=== PATIENT | female | born 1965 | race African-American/Black ===

== ENCOUNTER 2021-01-03 20:49 | Emergency (ER) | payer OTHER ==
[2021-01-04 00:18] LABS: #Eosinphils 0.2 10x3/uL (0.0-0.5); #Monocytes 0.6 10x3/uL (0.0-1.1); #Neutrophils 3.3 10x3/uL (1.5-8.4); %Basophils 0.6 % (0.0-2.0); %Eosinophils 3.2 % (0.0-6.0); %Lymphocytes 39.7 % (18.0-47.0); %Monocytes 8.4 % (0.0-10.0); %Neutrophils 47.8 % (40.0-75.0); Hemoglobin 14.2 g/dL (12.0-15.5); Mean Corpuscular HGB CONC 34.3 g/dL (32.0-36.0); Mean Corpuscular Hemoglobin 31.8 pg (27.0-33.0); Mean Corpuscular Volume 92.6 fl (81.6-98.3); Mean Platelet Volume 11.8 fl (7.4-10.4); Platelet Count 191 10x3/uL (150-450); RBC Distribution Width 12.4 % (11.5-14.5); Red Blood Cell (RBC) Count 4.47 10x6/uL (3.90-5.03); White Blood Cell (WBC) Count 6.9 10x3/uL (3.5-10.5)
[2021-01-04 00:27] LABS: ALT (SGPT) 44 U/L (8-55); AST (SGOT) 41 U/L (5-34); Albumin 3.9 g/dL (3.5-5.0); Alkaline Phosphatase 98 U/L (40-110); Anion Gap 14 mmol/L (10-20); BUN (Urea Nitrogen) 17 mg/dL (9.8-20.1); Bilirubin, Total 0.7 mg/dL (0.2-1.2); Calc. Creatinine Clearance 0 mL/min (70-130); Carbon Dioxide 22 mmol/L (22-29); Chloride 107 mmol/L (98-107); Globulin 2.9 g/dL (2.4-3.5); Glucose 195 mg/dL (70-105); Potassium 3.5 mmol/L (3.5-5.1); Protein, Total 6.8 g/dL (6.0-8.3); Sodium 139 mmol/L (136-145)
[2021-01-04 00:29] LABS: Actual Bicarbonate (HCO3v) 24 mEq/L (22-28); Base Excess -1.8 mEq/L (-2.0 to +3.0); Calcium, Ionized (venous) 1.15 mmol/L (1.16-1.32); Chloride (VBG) 105 mmol/L (98-106); Critical Notified Whom: MD; Hemoglobin (Hb) 15.2 g/dL (11.7-16.0); Potassium (VBG) 3.54 mmol/L (3.70-5.30); Puncture Site Other Site; Sodium 139.3 mmol/L (133-146); pH (venous) 7.36 (7.32-7.43)
[2021-01-04 00:37] LABS: Bilirubin Neg (Negative); Blood, Urine 25 (Negative); Clarity Slightly Cloudy (Clear); Glucose, Urine (Dipstick) 250 mg/dL (Negative); Ketone, Urine 50 mg/dL (Negative); Leukocyte 500 (Negative); Nitrite Negative (Negative); Protein, Urine (Dipstick) 15 mg/dl (Neg-Trace); Specific Gravity, Urine 1.025 (1.002-1.036); Urobilinogen Normal mg/dL (Less than 2)
[2021-01-04 01:00] LABS: Bacteria/HPF Rare-Few HPF (None Seen)
== END 2021-01-04 01:45 | disposition home or self-care (01) ==
LOC: CSHERS 20:49
DX: E11.65 Type 2 diabetes mellitus with hyperglycemia (principal); E78.5 Hyperlipidemia, unspecified; E78.00 Pure hypercholesterolemia, unspecified; J45.909 Unspecified asthma, uncomplicated; Z79.84 Long term (current) use of oral hypoglycemic drugs
CPT/HCPCS: 36416; 80053; 81003; 81015; 82010; 82805; 85025; 99284

== ENCOUNTER 2021-01-20 02:37 | Emergency (ER) | payer OTHER ==
[2021-01-20] MEDS ORDERED: Dexamethasone 10 MG/ML VIAL ONE (03:09)
== END 2021-01-20 03:48 | disposition home or self-care (01) ==
LOC: CSHERS 02:37
DX: J45.901 Unspecified asthma with (acute) exacerbation (principal); E11.9 Type 2 diabetes mellitus without complications; E78.00 Pure hypercholesterolemia, unspecified; E78.5 Hyperlipidemia, unspecified
CPT/HCPCS: 94640; 94760; J1100; J7620

== ENCOUNTER 2021-05-22 06:49 | Emergency (ER) | payer OTHER ==
[2021-05-22] MEDS ORDERED: Dexamethasone 10 MG/ML VIAL ONE (07:39)
[2021-05-22] MEDS ORDERED: Ventolin HFA Inhaler 60 PUFF INHALER ONE (07:40)
== END 2021-05-22 09:37 | disposition home or self-care (01) ==
LOC: CSHERS 06:49
DX: J45.901 Unspecified asthma with (acute) exacerbation (principal); E11.9 Type 2 diabetes mellitus without complications; E78.5 Hyperlipidemia, unspecified; E78.00 Pure hypercholesterolemia, unspecified
CPT/HCPCS: 96372; J1100

== ENCOUNTER 2021-10-09 00:46 | Emergency (ER) | payer OTHER ==
[2021-10-09] MEDS ORDERED: Albuterol Sulfate 2.5 mg/3 ml Neb ONE ×2 (00:59→01:34)
[2021-10-09] MEDS ORDERED: Magnesium 2 GM/50 ML BAG (IN WATER) ONE (01:09)
[2021-10-09] MEDS ORDERED: Dexamethasone 10 MG/ML VIAL ONE (01:09)
[2021-10-09 01:31] LABS: #Basophils 0.1 10x3/uL (0.0-0.2); #Eosinphils 0.5 10x3/uL (0.0-0.5); #Monocytes 0.4 10x3/uL (0.0-1.1); #Neutrophils 2.8 10x3/uL (1.5-8.4); %Basophils 0.8 % (0.0-2.0); %Eosinophils 7.6 % (0.0-6.0); %Lymphocytes 40.7 % (18.0-47.0); %Monocytes 5.8 % (0.0-10.0); %Neutrophils 44.9 % (40.0-75.0); Hemoglobin 13.7 g/dL (12.0-15.5); Mean Corpuscular HGB CONC 34.3 g/dL (32.0-36.0); Mean Corpuscular Hemoglobin 31.1 pg (27.0-33.0); Mean Corpuscular Volume 90.7 fl (81.6-98.3); Mean Platelet Volume 10.4 fl (7.4-10.4); Platelet Count 223 10x3/uL (150-450); RBC Distribution Width 13.7 % (11.5-14.5); Red Blood Cell (RBC) Count 4.41 10x6/uL (3.90-5.03); White Blood Cell (WBC) Count 6.2 10x3/uL (3.5-10.5)
[2021-10-09 01:38] LABS: ALT (SGPT) 33 U/L (8-55); AST (SGOT) 26 U/L (5-34); Albumin 4.2 g/dL (3.5-5.0); Alkaline Phosphatase 104 U/L (40-110); Anion Gap 14 mmol/L (10-20); BUN (Urea Nitrogen) 14 mg/dL (9.8-20.1); Bilirubin, Total 0.5 mg/dL (0.2-1.2); CK (CPK) 461 U/L (29-168); Calc. Creatinine Clearance 0 mL/min (70-130); Carbon Dioxide 26 mmol/L (22-29); Chloride 104 mmol/L (98-107); Globulin 2.6 g/dL (2.4-3.5); Glucose 177 mg/dL (70-105); Potassium 3.6 mmol/L (3.5-5.1); Protein, Total 6.8 g/dL (6.0-8.3); Sodium 140 mmol/L (136-145)
== END 2021-10-09 02:19 | disposition home or self-care (01) ==
LOC: CSHERS 00:46
DX: J45.901 Unspecified asthma with (acute) exacerbation (principal); E11.9 Type 2 diabetes mellitus without complications; E78.5 Hyperlipidemia, unspecified; E78.00 Pure hypercholesterolemia, unspecified
CPT/HCPCS: 71045; 80053; 82550; 84484; 85025; 93005; 94640; 94760; 96365; 96375; J1100; J3475; J7611; J7620

== ENCOUNTER 2022-01-26 19:34 | Emergency (ER) | payer OTHER ==
[2022-01-26] MEDS ORDERED: Dexamethasone 10 MG/ML VIAL ONE (20:14)
== END 2022-01-26 22:18 | disposition home or self-care (01) ==
LOC: CSHERS 19:34
DX: J45.909 Unspecified asthma, uncomplicated (principal); E11.9 Type 2 diabetes mellitus without complications; E78.5 Hyperlipidemia, unspecified
CPT/HCPCS: 94644; 94760; 96374; J1100; J7620

== ENCOUNTER 2022-02-11 01:08 | Emergency (ER) | payer OTHER ==
[2022-02-11] MEDS ORDERED: predniSONE 20 MG TAB ONE (01:39)
== END 2022-02-11 02:29 | disposition home or self-care (01) ==
LOC: CSHERS 01:08
DX: J45.901 Unspecified asthma with (acute) exacerbation (principal); E11.9 Type 2 diabetes mellitus without complications; E78.5 Hyperlipidemia, unspecified; Z79.899 Other long term (current) drug therapy
CPT/HCPCS: 93005; J7512

== ENCOUNTER 2022-05-30 14:10 | Outpatient (CLI) | payer BC | END 2022-05-30 14:11 | disposition home or self-care (01) | LOC: CSHMAMMO 14:10 | PROVIDERS: ATTEND Student in an Organized Health Care Education/Training Program | DX: Z12.31 Encounter for screening mammogram for malignant neoplasm of breast (principal) | CPT/HCPCS: 77063; 77067 ==

== ENCOUNTER 2022-06-01 17:49 | Emergency (ER) | payer BC ==
[2022-06-01] MEDS ORDERED: Ipratropium/Albuterol 3 ML NEB ONE ×3 (18:30→20:08)
[2022-06-01] MEDS ORDERED: Dexamethasone 10 MG/ML VIAL ONE (19:08)
== END 2022-06-01 22:30 | disposition home or self-care (01) ==
LOC: CSHERS 17:49
DX: J45.901 Unspecified asthma with (acute) exacerbation (principal); E11.9 Type 2 diabetes mellitus without complications; E78.5 Hyperlipidemia, unspecified
CPT/HCPCS: 71045; J1100; J7611; J7620

== ENCOUNTER 2022-06-02 20:43 | Emergency (ER) | payer BC ==
[2022-06-02] MEDS ORDERED: Ipratropium/Albuterol 3 ML NEB ONE ×2 (21:35→21:36)
[2022-06-02] MEDS ORDERED: predniSONE 20 MG TAB ONE (21:41)
[2022-06-02] MEDS ORDERED: Benzonatate 100 MG CAP ONE (21:42)
== END 2022-06-02 23:13 | disposition home or self-care (01) ==
LOC: CSHERS 20:43
DX: J20.9 Acute bronchitis, unspecified (principal); J45.901 Unspecified asthma with (acute) exacerbation; E11.9 Type 2 diabetes mellitus without complications; E78.5 Hyperlipidemia, unspecified; Z79.899 Other long term (current) drug therapy; Z79.84 Long term (current) use of oral hypoglycemic drugs
CPT/HCPCS: 93005; 94644; 94760; J7512; J7620

== ENCOUNTER 2022-12-20 01:58 | Emergency (ER) | payer BC ==
[2022-12-20] MEDS ORDERED: Albuterol 2.5 MG/0.5 ML NEB ONE (02:08)
[2022-12-20] MEDS ORDERED: Ipratropium/Albuterol 3 ML NEB ONE (02:09)
[2022-12-20] MEDS ORDERED: predniSONE 20 MG TAB ONE (02:11)
== END 2022-12-20 02:55 | disposition home or self-care (01) ==
LOC: CSHERS 01:58
DX: J45.901 Unspecified asthma with (acute) exacerbation (principal); E11.9 Type 2 diabetes mellitus without complications; E78.5 Hyperlipidemia, unspecified; Z79.84 Long term (current) use of oral hypoglycemic drugs; Z79.899 Other long term (current) drug therapy
CPT/HCPCS: 94644; 94760; J7512; J7611; J7620

== ENCOUNTER 2022-12-30 17:59 | Emergency (ER) | payer BC ==
[2022-12-30] MEDS ORDERED: predniSONE 20 MG TAB ONE (18:37)
[2022-12-30] MEDS ORDERED: Ipratropium/Albuterol 3 ML NEB ONE (18:56)
== END 2022-12-30 20:51 | disposition home or self-care (01) ==
LOC: CSHERS 17:59
DX: J45.901 Unspecified asthma with (acute) exacerbation (principal)
CPT/HCPCS: 94640; 94760; J7512; J7620

== ENCOUNTER 2023-01-15 02:56 | Emergency (ER) | payer BC ==
[2023-01-15] MEDS ORDERED: Ipratropium/Albuterol 3 ML NEB ONE ×2 (03:02→03:21)
[2023-01-15] MEDS ORDERED: methylPREDNISolone Sod Succ/PF 125 MG/2 ML VIAL ONE (03:22)
[2023-01-15 03:23] LABS: Anion Gap 17 mmol/L (10-20); BUN (Urea Nitrogen) 14 mg/dL (9.8-20.1); Calc. Creatinine Clearance 0 mL/min (70-130); Calcium 9.3 mg/dL (7.8-10.44); Carbon Dioxide 21 mmol/L (22-29); Chloride 106 mmol/L (98-107); Estimated GFR 55; Glucose 250 mg/dL (70-105); Potassium 3.8 mmol/L (3.5-5.1); Sodium 140 mmol/L (136-145)
[2023-01-15 03:25] LABS: #Basophils 0.1 10x3/uL (0.0-0.2); #Eosinphils 0.4 10x3/uL (0.0-0.5); #Monocytes 0.5 10x3/uL (0.0-1.1); #Neutrophils 4.4 10x3/uL (1.5-8.4); %Basophils 0.7 % (0.0-2.0); %Eosinophils 4.9 % (0.0-6.0); %Lymphocytes 37.4 % (18.0-47.0); %Monocytes 5.4 % (0.0-10.0); %Neutrophils 51.5 % (40.0-75.0); Hematocrit 44.2 % (34.9-44.5); Hemoglobin 14.6 g/dL (12.0-15.5); Mean Corpuscular Hemoglobin 31.1 pg (27.0-33.0); Mean Corpuscular Volume 94.2 fl (81.6-98.3); Mean Platelet Volume 10.7 fl (7.4-10.4); Platelet Count 263 10x3/uL (150-450); Red Blood Cell (RBC) Count 4.69 10x6/uL (3.90-5.03); White Blood Cell (WBC) Count 8.5 10x3/uL (3.5-10.5)
[2023-01-15 04:19] LABS: SARS-CoV-2 NAA Rapid Test Not Detected (NotDetected)
== END 2023-01-15 05:20 | disposition home or self-care (01) ==
LOC: CSHERS 02:56
DX: J45.901 Unspecified asthma with (acute) exacerbation (principal); E11.9 Type 2 diabetes mellitus without complications; Z87.891 Personal history of nicotine dependence; Z79.51 Long term (current) use of inhaled steroids; Z79.84 Long term (current) use of oral hypoglycemic drugs
CPT/HCPCS: 71045; 80048; 85025; 93005; 94760; 96374; J2930; J7620

== ENCOUNTER 2023-04-16 22:58 | Inpatient (IN) | payer BC ==
[2023-04-16] MEDS ORDERED: Ipratropium Bromide 2.5 ml Neb ONE (23:42)
[2023-04-17] MEDS ORDERED: Dexamethasone 10 MG/ML VIAL ONE (00:58)
[2023-04-17] MEDS ORDERED: Ipratropium Bromide 2.5 ml Neb ONE (01:11)
[2023-04-17 03:24] LABS: #Basophils 0.1 10x3/uL (0.0-0.2); #Eosinphils 0.2 10x3/uL (0.0-0.5); #Monocytes 0.1 10x3/uL (0.0-1.1); #Neutrophils 5.6 10x3/uL (1.5-8.4); %Basophils 0.7 % (0.0-2.0); %Eosinophils 2.4 % (0.0-6.0); %Monocytes 1.6 % (0.0-10.0); Hematocrit 38.5 % (34.9-44.5); Hemoglobin 13.1 g/dL (12.0-15.5); Mean Corpuscular Hemoglobin 31.4 pg (27.0-33.0); Mean Corpuscular Volume 92.3 fl (81.6-98.3); Mean Platelet Volume 10.2 fl (7.4-10.4); Platelet Count 229 10x3/uL (150-450); RBC Distribution Width 13.5 % (11.5-14.5); Red Blood Cell (RBC) Count 4.17 10x6/uL (3.90-5.03); White Blood Cell (WBC) Count 6.7 10x3/uL (3.5-10.5)
[2023-04-17] MEDS ORDERED: Magnesium 2 GM/50 ML BAG (IN WATER) ONE (03:32)
[2023-04-17 03:35] LABS: ALT (SGPT) 25 U/L (8-55); AST (SGOT) 18 U/L (5-34); Alkaline Phosphatase 82 U/L (40-110); Anion Gap 15 mmol/L (10-20); BUN (Urea Nitrogen) 11 mg/dL (9.8-20.1); Bilirubin, Total 0.7 mg/dL (0.2-1.2); Calc. Creatinine Clearance 0 mL/min (70-130); Carbon Dioxide 22 mmol/L (22-29); Chloride 108 mmol/L (98-107); Estimated GFR 73; Globulin 2.9 g/dL (2.4-3.5); Glucose 231 mg/dL (70-105); Potassium 3.8 mmol/L (3.5-5.1); Protein, Total 6.9 g/dL (6.0-8.3); Sodium 141 mmol/L (136-145)
[2023-04-17] MEDS ORDERED: Senokot S 8.6-50 MG TAB PO PRN (03:43)
[2023-04-17] MEDS ORDERED: Glucagon 1 MG/ML KIT IM PRN (03:43)
[2023-04-17] MEDS ORDERED: Dextrose 50% Abboject 50 ML SYRINGE SLOW IVP PRN (03:43)
[2023-04-17] MEDS ORDERED: Calcium Carbonate 500 MG ChewTAB PO PRN (03:43)
[2023-04-17] MEDS ORDERED: Dextrose 5% in Water 1,000 ML IV PRN (03:43)
[2023-04-17] MEDS ORDERED: Zolpidem Tartrate 5 MG TAB PO PRN (03:43)
[2023-04-17] MEDS ORDERED: Ondansetron PF 4 MG/2 ML Vial IVP PRN (03:43)
[2023-04-17] MEDS ORDERED: Guaifenesin DM 100-10/5 ML UDCUP PO PRN (03:43)
[2023-04-17] MEDS ORDERED: Acetaminophen 325 MG TAB PO PRN (03:43)
[2023-04-17] MEDS ORDERED: Ipratropium/Albuterol 3 ML NEB NEB PRN (03:45)
[2023-04-17 04:09] LABS: SARS-CoV-2 NAA Rapid Test Not Detected (NotDetected)
[2023-04-17 04:09] LABS: Actual Bicarbonate (HCO3v) 24.1 mEq/L (22-28); Analyzer IN Cardio CS ER; Base Excess -1.7 mEq/L (-2 - +2); Calcium, Ionized (venous) 1.12 mmol/L (1.16-1.32); Chloride (VBG) 107 mmol/L (98-106); Critical Notified By: CP.PH; Hematocrit-VBG 41 % (36.0-47.0); Hemoglobin (Hb) 14.1 g/dL (11.7-16.0); Potassium (VBG) 3.83 mmol/L (3.70-5.30); Puncture Site Other Site; RapidComm Collect By LAB.YY; Sodium 141 mmol/L (133-146); pH (venous) 7.348 (7.32-7.43)
[2023-04-17] MEDS ORDERED: Ipratropium/Albuterol 3 ML NEB ONE (08:25)
[2023-04-17 09:19] VITALS: BMI 27.9
[2023-04-17] MEDS ORDERED: Oxymetazoline HCl 0.05% ( 15 ML ) NASAL SCH (10:00)
[2023-04-17] MEDS ORDERED: Azithromycin 250 MG TAB PO SCH (10:00)
[2023-04-17] MEDS ORDERED: Famotidine 20 MG TAB PO SCH (10:00)
[2023-04-17] MEDS ORDERED: glipiZIDE XL 10 mg ER.TAB PO SCH (10:00)
[2023-04-17] MEDS ORDERED: Mometasone/Formoterol 200/5 60 PUFF INH SCH (10:00)
[2023-04-17] MEDS: HumaLOG 300 UNITS/3 ML VIAL SC PRN ×3 (10:08→21:32)
[2023-04-17] MEDS ORDERED: FLU VACC QS2023-24(6MOS UP)/PF 60 MCG/0.5 ML SYRINGE IM ONE (11:15)
[2023-04-17] MEDS ORDERED: methylPREDNISolone Sod Succ/PF 125 MG/2 ML VIAL IVP SCH (12:00)
[2023-04-17] MEDS: Ipratropium/Albuterol 3 ML NEB NEB SCH ×2 (13:08→19:00)
[2023-04-17] MEDS: Famotidine 20 MG TAB PO SCH (20:40)
[2023-04-17] MEDS: Oxymetazoline HCl 0.05% ( 15 ML ) NASAL SCH (20:41)
[2023-04-17] MEDS ORDERED: Atorvastatin Calcium 20 MG TAB PO SCH (21:00)
[2023-04-17] MEDS ORDERED: Montelukast Sodium 10 mg Tablet PO SCH (21:00)
[2023-04-17] MEDS: Mometasone/Formoterol 200/5 60 PUFF INH SCH (21:50)
[2023-04-18] MEDS: Ipratropium/Albuterol 3 ML NEB NEB SCH ×2 (01:00→07:35)
[2023-04-18 04:58] LABS: #Eosinphils 0.1 10x3/uL (0.0-0.5); #Monocytes 0.7 10x3/uL (0.0-1.1); %Basophils 0.3 % (0.0-2.0); %Eosinophils 0.7 % (0.0-6.0); %Lymphocytes 17.4 % (18.0-47.0); %Monocytes 5.6 % (0.0-10.0); %Neutrophils 75.7 % (40.0-75.0); Hematocrit 39.2 % (34.9-44.5); Hemoglobin 13.4 g/dL (12.0-15.5); Mean Corpuscular HGB CONC 34.2 g/dL (32.0-36.0); Mean Corpuscular Hemoglobin 31.5 pg (27.0-33.0); Mean Corpuscular Volume 92.2 fl (81.6-98.3); Mean Platelet Volume 10.7 fl (7.4-10.4); Platelet Count 248 10x3/uL (150-450); RBC Distribution Width 13.5 % (11.5-14.5); Red Blood Cell (RBC) Count 4.25 10x6/uL (3.90-5.03); White Blood Cell (WBC) Count 11.8 10x3/uL (3.5-10.5)
[2023-04-18 05:06] LABS: Anion Gap 14 mmol/L (10-20); BUN (Urea Nitrogen) 15 mg/dL (9.8-20.1); Calc. Creatinine Clearance 79 mL/min (70-130); Calcium 9.5 mg/dL (7.8-10.44); Carbon Dioxide 21 mmol/L (22-29); Chloride 109 mmol/L (98-107); Estimated GFR 71; Glucose 257 mg/dL (70-105); Sodium 140 mmol/L (136-145)
[2023-04-18 05:17] VITALS: TEMP 98
[2023-04-18] MEDS: HumaLOG 300 UNITS/3 ML VIAL SC PRN (05:54)
[2023-04-18] MEDS: Mometasone/Formoterol 200/5 60 PUFF INH SCH ×2 (07:40→08:11)
[2023-04-18] MEDS ORDERED: glipiZIDE XL 10 mg ER.TAB PO SCH (08:00)
[2023-04-18] MEDS ORDERED: predniSONE 20 MG TAB PO SCH (08:00)
[2023-04-18 08:05] VITALS: BP 138/75
[2023-04-18] MEDS: Famotidine 20 MG TAB PO SCH (08:08)
[2023-04-18] MEDS: Oxymetazoline HCl 0.05% ( 15 ML ) NASAL SCH (08:10)
[2023-04-18] MEDS ORDERED: metFORMIN 500 MG TAB PO SCH ×2 (17:00)
== END 2023-04-18 10:50 | disposition home or self-care (01) | DRG 202 ==
LOC: CSHERS 22:58 → CSHERHOLD 04-17 03:40 → CSHTELE 04-17 08:09
PROVIDERS: ADMIT Student in an Organized Health Care Education/Training Program; ATTEND Hospitalist
DX: J45.41 Moderate persistent asthma with (acute) exacerbation (principal); R65.10 Systemic inflammatory response syndrome (SIRS) of non-infectious origin without acute organ dysfunction; E78.5 Hyperlipidemia, unspecified; R09.02 Hypoxemia; E11.9 Type 2 diabetes mellitus without complications; Z98.51 Tubal ligation status; Z87.891 Personal history of nicotine dependence; Z11.52 Encounter for screening for COVID-19
CPT/HCPCS: 36415; 36416; 71045; 80048; 80053; 82805; 85025; 93005; 94644; 94645; 94760; J1100; J1650; J1815; J2930; J3475; J7512; J7611; J7620

== ENCOUNTER 2024-04-22 00:33 | Emergency (ER) | payer BC ==
[2024-04-22] MEDS ORDERED: Ibuprofen 200 MG TAB ONE (00:59)
[2024-04-22] MEDS ORDERED: Acetaminophen 500 MG TAB ONE ×2 (01:00→01:03)
[2024-04-22] MEDS ORDERED: Cyclobenzaprine 10 MG TAB ONE (01:09)
[2024-04-22 01:25] LABS: ALT (SGPT) 28 U/L (8-55); AST (SGOT) 20 U/L (5-34); Albumin 3.7 g/dL (3.5-5.0); Alkaline Phosphatase 96 U/L (40-110); Anion Gap 14 mmol/L (10-20); BUN (Urea Nitrogen) 22 mg/dL (9.8-20.1); Bilirubin, Total 0.5 mg/dL (0.2-1.2); Calc. Creatinine Clearance 0 mL/min (70-130); Calcium 9.8 mg/dL (7.8-10.44); Carbon Dioxide 20 mmol/L (22-29); Chloride 110 mmol/L (98-107); Estimated GFR 61; Globulin 2.7 g/dL (2.4-3.5); Glucose 146 mg/dL (70-105); Potassium 3.8 mmol/L (3.5-5.1); Protein, Total 6.4 g/dL (6.0-8.3); Sodium 140 mmol/L (136-145)
== END 2024-04-22 01:36 | disposition home or self-care (01) ==
LOC: CSHERS 00:33
DX: M79.605 Pain in left leg (principal); M79.604 Pain in right leg; E11.9 Type 2 diabetes mellitus without complications; E78.5 Hyperlipidemia, unspecified; Z79.84 Long term (current) use of oral hypoglycemic drugs; Z79.51 Long term (current) use of inhaled steroids; Z79.899 Other long term (current) drug therapy
CPT/HCPCS: 80053; 93005; 99283

== ENCOUNTER 2025-04-26 05:43 | Emergency (ER) | payer BC | END 2025-04-26 06:32 | disposition home or self-care (01) | LOC: CSHERS 05:43 | DX: B34.9 Viral infection, unspecified (principal); E11.9 Type 2 diabetes mellitus without complications; E78.5 Hyperlipidemia, unspecified; I10 Essential (primary) hypertension; J45.909 Unspecified asthma, uncomplicated; Z79.899 Other long term (current) drug therapy; Z79.84 Long term (current) use of oral hypoglycemic drugs; Z79.85 Long-term (current) use of injectable non-insulin antidiabetic drugs; Z79.51 Long term (current) use of inhaled steroids | CPT/HCPCS: 87428; 99284 ==